=== PATIENT | female | born 1960 | race Caucasian/White ===

== ENCOUNTER 2024-09-22 14:14 | Outpatient (CLI) | payer BC, SELFPAY ==
--- NOTE | 2024-09-22 14:00 | DI.RAD_ITS ---
Exam(s) XR CERVICAL SPINE COMP 4-5V EXAM: XR CERVICAL SPINE COMP 4-5V CLINICAL HISTORY: M54.12, M54.2, Radiculopathy cervical regional, Cervicalgia pain. TECHNIQUE: 2D digital imaging was performed. Six images were obtained. AP, odontoid, lateral and safia ateral oblique images were obtained. COMPARISON: No exams were available for comparison FINDINGS: The odontoid is intact. The lateral masses are well aligned. There is normal alignment of the cervi stephy spine. There is disc space narrowing at C5-C6. There are endplate osteophytes seen from C4-5 thro ugh C6-C7. No acute fracture or subluxation is present. There is mild narrowing bilaterally at the ne ural foramen at C5-C6 and on the left at C6-C7. The cervical thoracic junction is well maintained. T he prevertebral soft tissues are unremarkable. Lung apices are clear. IMPRESSION: Mild degenerative changes seen in the cervical spine as described above. DATA REPOSITORY: RADIATION DOSE DELIVERED:
== END 2024-09-22 14:34 ==
LOC: DI 14:15
PROVIDERS: PCP Internal Medicine; Visit Provider Anesthesiology Pain Medicine
DX: M54.12 Radiculopathy, cervical region (principal)
CPT/HCPCS: 72050

== ENCOUNTER 2024-10-08 02:24 | Outpatient (CLI) | payer BC, SELFPAY ==
--- NOTE | 2024-10-08 15:15 | DI.MRI_ITS ---
Exam(s) MR CERVICAL SPINE WO EXAM: MR CERVICAL SPINE WO CLINICAL HISTORY: pain,cervical radiculitis,m54.12,m54.2,cervicalgia TECHNIQUE: Multiplanar multisequence MRI of the cervical spine was performed without intravenous con trast. COMPARISON: CR XR CERVICAL SPINE COMP 4-5V from 09/22/2024 FINDINGS: CERVICOMEDULLARY JUNCTION: Intact with no evidence of cerebellar tonsillar ectopia. No obvious abnor mality of the odontoid process. No evidence of Chiari 1 malformation. CERVICAL SPINAL CORD: There is no abnormal signal in the cervical spinal cord and no evidence of foca l cord atrophy nor focal cord swelling. OSSEOUS:There are no cervical fractures evident. No significant osseous lesions in the cervical vert ebrae. There is no reversal of the cervical curvature. INDIVIDUAL LEVELS: C2-3: No disc herniation nor central canal stenosis. No foraminal stenosis. No facet arthropathy. C3-4: Normal disc height and signal. Mild central subligamentous annular bulging which effaces the a nterior thecal sac but not the spinal cord. Central canal dimensions are within normal limits. Face t joints exhibit degenerative changes on the left side and only minimal findings on the right side. There is, however, no significant foraminal stenosis on either side at this level. C4-5: This level exhibits moderate disc space narrowing. Posteriorly there is broad relatively symme trical annular bulging which effaces the anterior thecal sac and contacts the anterior aspect of the cervical spinal cord. Central canal dimensions are lower normal at this level. Facet joints at this level appear unremarkable on the right side and mild degenerative change on the left side. Some ashley ular bulging into the floor of the exiting bilateral neural foramen noted. Mild bilateral foraminal stenosis. C5-6: This level exhibits chronic advanced disc space narrowing and anterior osseous lipping. 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 There are small bilateral Luschka joint osteophytes on the left side. Mild left-si ded foraminal stenosis. No obvious right-sided foraminal stenosis. There are no obvious degenerativ e changes evident in the facet joints at this level. C6-7: This level exhibits moderate disc space narrowing. Posteriorly there is subligamentous annular bulging but without a dominant disc herniation and central canal dimensions are within normal limits . Facet joints appear unremarkable bilaterally at this level. No right-sided foraminal stenosis anthony dent. Mild left-sided foraminal stenosis. C7-T1: No disc herniation nor central canal stenosis. No facet arthropathy.No foraminal stenosis. IMPRESSION: 1. Multilevel findings as described individually above. 2. There is some multilevel annular bulging but there is no dominant focal disc herniation and no pro minent central canal stenosis. 3. There is some multilevel asymmetric mild foraminal stenosis. 4. There are only mild degenerative changes in the facet joints. DATA REPOSITORY:
== END 2024-10-08 02:44 ==
LOC: DI 02:24
PROVIDERS: PCP Internal Medicine; Visit Provider Anesthesiology Pain Medicine
DX: M54.12 Radiculopathy, cervical region (principal); M54.2 Cervicalgia
CPT/HCPCS: 72141

== ENCOUNTER → 2025-04-08 08:03 | Outpatient (BNVA) | payer MEDICARE, BC, SELFPAY | PROVIDERS: PCP Internal Medicine; Referring Provider Internal Medicine; Visit Provider Psychiatry & Neurology Neurology | DX: G56.03 Carpal tunnel syndrome, bilateral upper limbs (principal) | CPT/HCPCS: 95910 ==